=== PATIENT | female | born 1965 | race Caucasian/White ===

== ENCOUNTER 2023-12-29 08:24 | Day surgery (SDC) | payer OTHER ==
[~2023-12-29] VITALS: Ht 165.1 cm; Wt 72.6 kg
[2023-12-29] MEDS ORDERED: fentaNYL CITRATE/PF 100 MCG/2 ML AMP ONE (09:08)
[2023-12-29] MEDS ORDERED: MIDAZOLAM HCL 5 MG/5 ML VIAL ONE (09:08)
[2023-12-29 13:48] VITALS: BP_SYST 114; PULSE 57; RESP 17; TEMP 97.7; O2SAT 100
== END 2023-12-29 11:50 | disposition home or self-care (01) ==
LOC: SDS 08:24 → SMU 08:25 → SDS 11:50
PROVIDERS: ATTEND Internal Medicine
DX: Z12.11 Encounter for screening for malignant neoplasm of colon (principal); K29.50 Unspecified chronic gastritis without bleeding; K31.A0 Gastric intestinal metaplasia, unspecified; K21.9 Gastro-esophageal reflux disease without esophagitis; K22.70 Barrett's esophagus without dysplasia; K64.8 Other hemorrhoids; I10 Essential (primary) hypertension; E78.5 Hyperlipidemia, unspecified; Z79.899 Other long term (current) drug therapy
CPT/HCPCS: 45378; 43239; 99152; 87081; 36415; 88305; 88312; 88313; J2250; J3010